=== PATIENT | female | born 1975 | race African-American/Black ===

== ENCOUNTER 2016-12-04 10:48 | Emergency (ER) | payer MEDICAID, OTHER ==
[~2016-12-04] VITALS: Ht 167.6 cm; Wt 83.9 kg
[2016-12-04 10:56] VITALS: BP 130/88
== END 2016-12-04 11:57 | disposition home or self-care (01) ==
LOC: EDBD 10:48 → ER 10:50
DX: S90.31XA Contusion of right foot, initial encounter (principal); F17.210 Nicotine dependence, cigarettes, uncomplicated; W22.8XXA Striking against or struck by other objects, initial encounter; Y93.89 Activity, other specified; Y99.8 Other external cause status; Y92.89 Other specified places as the place of occurrence of the external cause

== ENCOUNTER → 2018-06-13 | Emergency (ER) | payer MEDICAID | END | disposition left against medical advice (07) | LOC: ER 22:50 | DX: R51 Headache (principal); Z53.21 Procedure and treatment not carried out due to patient leaving prior to being seen by health care provider ==

== ENCOUNTER 2019-02-17 10:42 | Emergency (ER) | payer SELFPAY ==
[~2019-02-17] VITALS: Ht 167.6 cm; Wt 83.9 kg
[2019-02-17 10:51] VITALS: BP 132/85
== END 2019-02-17 12:41 | disposition home or self-care (01) ==
LOC: ER 10:42
DX: R07.89 Other chest pain (principal); F41.9 Anxiety disorder, unspecified; F17.210 Nicotine dependence, cigarettes, uncomplicated; F12.10 Cannabis abuse, uncomplicated; Z98.51 Tubal ligation status
CPT/HCPCS: 93005

== ENCOUNTER 2019-08-04 17:33 | Emergency (ER) | payer SELFPAY ==
[~2019-08-04] VITALS: Ht 167.6 cm; Wt 89.8 kg
[2019-08-04 19:37] VITALS: BP 124/79
[2019-08-04] MEDS ORDERED: ALBUTEROL SULF 2.5 MG/0.5ML(0.5%) NEB SOLN NEB ONE (20:15)
[2019-08-04] MEDS ORDERED: IPRATROPIUM BROM 0.5 MG/2.5ML INH SOL NEB ONE (20:15)
[2019-08-04] MEDS ORDERED: cefTRIAXone W LIDOCAINE 1 GM IM IM ONE (21:45)
[2019-08-04] MEDS ORDERED: cefTRIAXone SOD 1,000 MG VL IM ONE (22:00)
[2019-08-04] MEDS ORDERED: LIDOCAINE HCL 1 % PF INJ 2ML AMP IJ ONE (22:00)
== END 2019-08-04 22:24 | disposition home or self-care (01) ==
LOC: ER 17:34
DX: J18.1 Lobar pneumonia, unspecified organism (principal); J01.00 Acute maxillary sinusitis, unspecified; F17.210 Nicotine dependence, cigarettes, uncomplicated; F12.10 Cannabis abuse, uncomplicated; Z98.51 Tubal ligation status
CPT/HCPCS: 71046; 94640; 96372; 99283; J0696; J7611; J7644

== ENCOUNTER → 2019-12-29 | Emergency (ER) | payer MEDICAID ==
[~2019-12-29] VITALS: Ht 167.6 cm; Wt 90.3 kg
[~2019-12-29] MED LIST: FERROUS SULFATE 325 MG TAB PO ONE; IOHEXOL 350 MG/ML 100ML IJ ONE; LORazepam 2MG/ML-1ML VIAL IV ONE; POTASSIUM EFFERVESENT TAB 25 MEQ PO ONE
[2019-12-29 06:35] LABS: Basophils # (auto) 0 10 ^3/uL (0-0.2); Neutrophils # (auto) 5.1 10 ^3/uL (1.6-8.6); Red Blood Cells 3.63 10^6/uL (4.0-5.20); White Blood Cell 7.2 10^3/uL (4.4-10.8)
[2019-12-29 06:36] LABS: Basophils % (auto) 0.4 % (0.0-2.0); Eosinophils # (auto) 0.3 10 ^3/uL (0-0.8); Eosinophils % (auto) 3.8 % (0.0-7.0); Hematocrit 28.1 % (36.0-46.0); Hemoglobin 8.7 g/dL (12.2-16.2); Lymphocytes # (auto) 1.2 10 ^3/uL (0.4-5.4); Lymphocytes % (auto) 16.1 % (10.0-50.0); Mean Corpuscular Hemoglobin 24.1 pg (28.0-32.0); Mean Corpuscular Volume 77.5 fL (80.0-100.0); Monocytes # (auto) 0.6 10 ^3/uL (0-1.3); Monocytes % (auto) 8.8 % (0.0-12.0); Neutrophils % (auto) 70.9 % (37.0-80.0); Platelet Count (auto) 510 10^3/uL (140-450); Red Cell Distribution Width 19.2 % (11.8-14.3)
[2019-12-29 06:41] LABS: Albumin 2.5 g/dL (3.4-5.0); BUN/Creatinine Ratio 14.9; Calcium 8.8 mg/dL (8.5-10.1); Potassium 3.4 mmol/L (3.5-5.1)
[2019-12-29 06:44] LABS: Bilirubin, Total 0.2 mg/dL (0.2-1.0)
[2019-12-29 09:56] LABS: INR 1.06 (0.9-1.15)
[2019-12-29 10:29] VITALS: BP 142/85
== END | disposition home or self-care (01) ==
LOC: ER 04:31
DX: R06.02 Shortness of breath (principal); E87.6 Hypokalemia; E46 Unspecified protein-calorie malnutrition; D64.9 Anemia, unspecified; R79.89 Other specified abnormal findings of blood chemistry
CPT/HCPCS: 36415; 71260; 80053; 83605; 85025; 85379; 85610; 85730; 87040; 93005; 93970; 96374; 99285; J2060; Q9967

== ENCOUNTER 2020-02-01 17:19 | Emergency (ER) | payer MEDICAID ==
[~2020-02-01] VITALS: Ht 167.6 cm; Wt 84.8 kg
[2020-02-01 17:31] VITALS: BP 141/85
[2020-02-01] MEDS ORDERED: diphenhdrAMINE HCL 50 MG/1 ML VL IM ONE (17:45)
== END 2020-02-01 18:15 | disposition home or self-care (01) ==
LOC: ER 17:19
DX: B86 Scabies (principal); B88.8 Other specified infestations; Z98.51 Tubal ligation status
CPT/HCPCS: 96372; 99283; J1200

== ENCOUNTER 2020-02-04 15:12 | Emergency (ER) | payer MEDICAID ==
[~2020-02-04] VITALS: Ht 167.6 cm; Wt 81.6 kg
[2020-02-04 16:09] LABS: Urine WBC None Seen /hpf (0 - 5)
[2020-02-04 16:22] LABS: Urine Bacteria NONE SEEN /hpf (None Seen); Urine Blood 2+ /uL (Negative); Urine Hyaline Cast MOD /lpf (0 - 2); Urine Mucus FEW (None Seen); Urine Specific Gravity 1.031 (1.001-1.035)
[2020-02-04] MEDS ORDERED: MAGNESIUM CITRATE SOLUTION 300 ML BTL PO ONE (16:45)
[2020-02-04 16:56] VITALS: BP 133/96
== END 2020-02-04 17:22 | disposition home or self-care (01) ==
LOC: ER 15:12
DX: K59.00 Constipation, unspecified (principal)
CPT/HCPCS: 74176; 81001

== ENCOUNTER → 2020-02-05 | Emergency (ER) | payer MEDICAID ==
[~2020-02-05] VITALS: Ht 167.6 cm; Wt 81.6 kg
[2020-02-05 02:00] VITALS: BP 134/68
== END | disposition home or self-care (01) ==
LOC: ER 00:07
DX: B86 Scabies (principal); B88.9 Infestation, unspecified; L29.9 Pruritus, unspecified

== ENCOUNTER 2020-03-19 11:44 | Emergency (ER) | payer MEDICAID ==
[~2020-03-19] VITALS: Ht 167.6 cm; Wt 85.7 kg
[2020-03-19 13:10] VITALS: BP 118/95
== END 2020-03-19 13:59 | disposition home or self-care (01) ==
LOC: ER 11:44
DX: R21 Rash and other nonspecific skin eruption (principal); F17.210 Nicotine dependence, cigarettes, uncomplicated

== ENCOUNTER 2020-10-20 22:35 | Emergency (ER) | payer MEDICAID, OTHER ==
[~2020-10-20] VITALS: Ht 167.6 cm; Wt 86.2 kg
[2020-10-21] MEDS ORDERED: ONDANSETRON HCL 4 MG/2 ML VIAL IV ONE (00:15)
[2020-10-21] MEDS ORDERED: SODIUM CHLORIDE 0.9% 1,000 ML IV ONE (00:15)
[2020-10-21 00:50] LABS: Basophils # (auto) 0 10 ^3/uL (0-0.2); Basophils % (auto) 0.2 % (0.0-2.0); Eosinophils # (auto) 0.1 10 ^3/uL (0-0.8); Eosinophils % (auto) 0.5 % (0.0-7.0); Hematocrit 35.7 % (36.0-46.0); Hemoglobin 11.4 g/dL (12.2-16.2); Lymphocytes # (auto) 3.1 10 ^3/uL (0.4-5.4); Lymphocytes % (auto) 23.4 % (10.0-50.0); Mean Corpuscular Hemoglobin 27.1 pg (28.0-32.0); Mean Corpuscular Volume 84.8 fL (80.0-100.0); Monocytes # (auto) 0.9 10 ^3/uL (0-1.3); Neutrophils # (auto) 9.1 10 ^3/uL (1.6-8.6); Neutrophils % (auto) 68.9 % (37.0-80.0); Red Blood Cells 4.21 10^6/uL (4.0-5.20); Red Cell Distribution Width 17.2 % (11.8-14.3); White Blood Cell 13.2 10^3/uL (4.4-10.8)
[2020-10-21 01:07] LABS: Alanine Aminotransferase 29 U/L (13-56); Albumin 3.1 g/dL (3.4-5.0); Anion Gap 9 (5-15); Aspartate Aminotransferase 18 U/L (15-37); BUN/Creatinine Ratio 19.7; Blood Urea Nitrogen 14 mg/dL (7-18); Calcium 9.3 mg/dL (8.5-10.1); Carbon Dioxide 25 mmol/L (21-32); Chloride 101 mmol/L (98-107); GFR African American 114 mL/min; GFR Non-African American 95 mL/min; Glucose 94 mg/dL (74-106); Magnesium 2.2 mg/dL (1.6-2.6); Potassium 3.6 mmol/L (3.5-5.1); Sodium 135 mmol/L (136-145)
[2020-10-21 01:11] LABS: Alkaline Phosphatase 103 U/L (45-117); Bilirubin, Total 0.3 mg/dL (0.2-1.0); Total Protein 8.2 g/dL (6.4-8.2)
[2020-10-21] MEDS ORDERED: HYDROcodone-ACET 10/325MG TAB PO ONE (01:15)
[2020-10-21] MEDS ORDERED: SUMAtriptan SUCCINATE 25 MG TAB PO ONE (02:30)
[2020-10-21 02:43] LABS: Urine Bacteria FEW /hpf (None Seen); Urine Blood 1+ /uL (Negative); Urine Mucus FEW (None Seen); Urine Specific Gravity 1.026 (1.001-1.035); Urine WBC 7 /hpf (0 - 5)
[2020-10-21 05:05] VITALS: BP 113/76
[2020-10-21] MEDS ORDERED: HYDROcodone-ACET 5/325MG TAB PO ONE (06:15)
== END 2020-10-21 06:48 | disposition home or self-care (01) ==
LOC: ER 22:42
DX: G43.909 Migraine, unspecified, not intractable, without status migrainosus (principal); N39.0 Urinary tract infection, site not specified; R42 Dizziness and giddiness; F41.9 Anxiety disorder, unspecified; F32.9 Major depressive disorder, single episode, unspecified; F17.210 Nicotine dependence, cigarettes, uncomplicated; F12.10 Cannabis abuse, uncomplicated; Z98.51 Tubal ligation status
CPT/HCPCS: 36415; 70450; 80053; 81001; 83735; 83880; 84484; 85025; 93005; 96361; 96374; 99285; J2405; J7030

== ENCOUNTER 2024-06-19 16:44 | Emergency (ER) | payer MEDICAID ==
[~2024-06-19] VITALS: Ht 167.6 cm; Wt 90.0 kg
[2024-06-19 16:52] VITALS: BP 123/80; PULSE 109; RESP 20; O2SAT 98
[2024-06-19] MEDS ORDERED: ACETAMINOPHEN 325 MG TAB PO ONE (17:00)
== END 2024-06-19 18:39 | disposition left against medical advice (07) ==
LOC: EDBD 16:44 → ER 16:44
DX: R50.9 Fever, unspecified (principal); M79.10 Myalgia, unspecified site; R51.9 Headache, unspecified; Z53.21 Procedure and treatment not carried out due to patient leaving prior to being seen by health care provider